=== PATIENT | female | born 1940 | race Asian ===

== ENCOUNTER 2020-01-23 06:57 | Day surgery (SDC) | payer OTHER, SELFPAY ==
[~2020-01-23] VITALS: Ht 162.6 cm; Wt 61.2 kg
[2020-01-23] MEDS ORDERED: fentaNYL CITRATE/PF 100 MCG/2 ML AMP ONE (07:54)
[2020-01-23] MEDS ORDERED: SIMETHICONE 40 MG/0.6 ML ML ONE (07:55)
[2020-01-23] MEDS: MIDAZOLAM HCL 5 MG/5 ML VIAL ONE ×4 (08:18→08:24)
[2020-01-23 08:35] VITALS: BP_SYST 123
== END 2020-01-23 09:09 | disposition home or self-care (01) ==
LOC: SDS 06:57 → SMU 06:58 → SDS 09:09
PROVIDERS: ATTEND Internal Medicine
DX: R10.13 Epigastric pain (principal); Z80.0 Family history of malignant neoplasm of digestive organs; Z90.710 Acquired absence of both cervix and uterus; Z86.718 Personal history of other venous thrombosis and embolism; Z20.828 Contact with and (suspected) exposure to other viral communicable diseases
CPT/HCPCS: 36415; 43239; 87081; 88305; 88312; 88313; G0378; J2250; J3010; J7030; U0003